=== PATIENT | male | born 1950 | race African-American/Black ===

== ENCOUNTER 2023-02-19 20:20 | Emergency (ER) | payer BC, MEDICARE, OTHER ==
[~2023-02-19] VITALS: Ht 185.5 cm; Wt 88.9 kg
[2023-02-19] MEDS ORDERED: ASPIRIN 81 MG CHEWABLE TABLET PO ONE (20:30)
--- NOTE | 2023-02-19 20:31 | ED Chest Pain ---
General Chief Complaint: Chest Pain Stated Complaint: SOA Source: patient Exam Limitations: no limitations History of Present Illness Date Seen by Provider: Feb 19, 2023 Time Seen by Provider: 20:30 Initial Comments Patient is a 72-year-old male with a history of smoking, hypertension, asthma who presents ED with chest tightness and shortness of breath. This occurred about 30 to 45 minutes ago. [place] on the highway and states he was pulled over. Patient was complaining of chest pain and tightness with shortness of breath to PD. EMS was contacted and brought patient to the ED. He states the chest pain and tightness has improved. He did have some wheezing with the chest pain. Reports history of similar symptoms in the past. No known cardiac history but does have a history of hypertension but not currently on medication. Denies diabetes, high cholesterol. Family cardiac history. Denies of any nausea, vomiting, diarrhea, fever, cough, runny nose, sore throat, ear pain. Patient states symptoms are improving. Allergies and Home Medications Allergies Coded Allergies: cyclobenzaprine (Verified Allergy, Unknown, 02/19/23) Patient Home Medication List Home Medication List Reviewed: Yes Albuterol Sulfate (Ventolin Hfa) 1 Puff Puff, 2 PUFF INH Q4H Prescribed by: ANA BOWEN on 02/19/232124 Review of Systems Review of Systems Constitutional: No chills, No diaphoresis EENTM: No Eye Pain Respiratory: Denies Cough; Shortness of Air Cardiovascular: Chest Pain Gastrointestinal: Denies Abdominal Pain, Denies Constipated, Denies Nausea, De nies Vomiting Genitourinary: Denies Burning, Denies Discharge, Denies Drainage, Denies Frequency Musculoskeletal: No back pain, No joint pain Skin: No change in color, No change in hair/nails All Other Systems Reviewed Negative Unless Noted: Yes Physical Exam Vital Signs Vital Signs - First Documented 02/19/23 20:20 Temp 36.2 Pulse 80 Resp 16 B/P (MAP) 144/113 (123) Pulse Ox 99 O2 Delivery Room Air Capillary Refill : Height, Weight, BMI Height: '" Weight: lbs. oz. kg; BMI Method: General Appearance: No Apparent Distress, WD/WN HEENT: PERRL/EOMI, TMs Normal, Normal ENT Inspection, Pharynx Normal Neck: Full Range of Motion, Normal Inspection, Non Tender, Supple Respiratory: Chest Non Tender, Lungs Clear, Normal Breath Sounds, No Accessory Muscle Use, No Respiratory Distress Cardiovascular: Regular Rate, Rhythm, No Edema, No Gallop, No JVD, No Murmur Gastrointestinal: Normal Bowel Sounds, No Organomegaly, No Pulsatile Mass, Non Tender Extremity: Normal Capillary Refill, Normal Inspection, Normal Range of Motion, Non Tender Neurologic/Psychiatric: Alert, Oriented x3, No Motor/Sensory Deficits, Normal Mood/Affect, 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 Skin: Normal Color, Warm/Dry Progress/Results/Core Measures Results/Orders Lab Results Laboratory Tests Test 02/19/23 20:24 Range/Units White Blood Count 3.8 L 4.3-11.0 10^3/uL Red Blood Count 5.75 H 4.30-5.52 10^6/uL Hemoglobin 15.6 13.3-17.7 g/dL Hematocrit 46 40-54 % Mean Corpuscular Volume 80 80-99 fL Mean Corpuscular Hemoglobin 27 25-34 pg Mean Corpuscular Hemoglobin Concent 34 32-36 g/dL Red Cell Distribution Width 14.3 10.0-14.5 % Platelet Count 171 130-400 10^3/uL Mean Platelet Volume 9.6 9.0-12.2 fL Immature Granulocyte % (Auto) 0 % Neutrophils (%) (Auto) 55 42-75 % Lymphocytes (%) (Auto) 30 12-44 % Monocytes (%) (Auto) 6 0-12 % Eosinophils (%) (Auto) 6 0-10 % Basophils (%) (Auto) 2 0-10 % Neutrophils # (Auto) 2.1 1.8-7.8 10^3/uL Lymphocytes # (Auto) 1.1 1.0-4.0 10^3/uL Monocytes # (Auto) 0.2 0.0-1.0 10^3/uL Eosinophils # (Auto) 0.2 0.0-0.3 10^3/uL Basophils # (Auto) 0.1 0.0-0.1 10^3/uL Immature Granulocyte # (Auto) 0.0 0.0-0.1 10^3/uL Prothrombin Time 13.1 12.2-14.7 SEC INR Comment 1.0 0.8-1.4 Activated Partial Thromboplast Time 31 24-35 SEC Sodium Level 140 135-145 MMOL/L Potassium Level 3.7 3.6-5.0 MMOL/L Chloride Level 109 H 98-107 MMOL/L Carbon Dioxide Level 21 21-32 MMOL/L Anion Gap 10 5-14 MMOL/L Blood Urea Nitrogen 16 7-18 MG/DL Creatinine 1.34 H 0.60-1.30 MG/DL Estimat Glomerular Filtration Rate 57 BUN/Creatinine Ratio 12 Glucose Level 101 70-105 MG/DL Calcium Level 9.1 8.5-10.1 MG/DL Corrected Calcium 8.9 8.5-10.1 MG/DL Magnesium Level 2.2 1.6-2.4 MG/DL Total Bilirubin 0.5 0.1-1.0 MG/DL Aspartate Amino Transf (AST/SGOT) 38 H 5-34 U/L Alanine Aminotransferase (ALT/SGPT) 39 0-55 U/L Alkaline Phosphatase 103 40-136 U/L Myoglobin 116.1 H 10.0-92.0 NG/ML Troponin I < 0.028 <0.028 NG/ML B-Type Natriuretic Peptide < 10.0 <100.0 PG/ML Total Protein 7.9 6.4-8.2 GM/DL Albumin 4.2 3.2-4.5 GM/DL Lipase 20 8-78 U/L My Orders Orders - FANTA BRIGGS PA Ekg Tracing (02/19/23 20:27) Cbc With Automated Diff (02/19/23 20:29) Magnesium (02/19/23 20:29) Chest 1 View, Ap/Pa Only (02/19/23 20:29) Comprehensive Metabolic Panel (02/19/23 20:29) Myoglobin Serum (02/19/23 20:29) Protime With Inr (02/19/23 20:29) Partial Thromboplastin Time (02/19/23 20:29) O2 (02/19/23 20:29) Monitor-Rhythm Ecg Trace Only (02/19/23 20:29) Ed Iv/Invasive Line Start (02/19/23 20:29) Lipase (02/19/23 20:29) Bnp Elizabeth (02/19/23 20:29) Troponin I [place] (02/19/23 20:29) Aspirin Chewable Tablet (Aspirin Chewabl (02/19/23 20:30) Medications Given in ED Vital Signs/I&O 02/19/23 02/19/23 02/19/23 20:20 20:20 21:37 Temp 36.2 36.2 Pulse 80 85 Resp 16 16 B/P (MAP) 144/113 (123) 138/103 Pulse Ox 99 98 O2 Delivery Room Air Room Air Room Air Comment Sinus rhythm voltage criteria for LVH, and 75 bpm, QRS duration 83 MS, QTc 396 MS Departure Communication (PCP) Patient presents ED by EMS for chest pain, tightness and shortness of breath. This occurred 30 minutes ago. Patient got pulled by highway patrol right before the symptoms started. No known cardiac history. Differential diagnosis, ACS, anxiety, asthma exacerbation. Does have a history of asthma. Patient on arrival says that pressure and shortness of breath has improved. No known history of coronary artery disease. History of hypertension but not currently on medication as he states his blood pressure is better controlled. Denies diabetes. History of smoking family cardiac history. Heart score 3. Cardiac work-up is was initiated. Patient was given a full aspirin 324 mg. EKG showed sinus rhythm without evidence of ST elevation or depression or arrhythmia. Concern for LVH. CBC, CMP grossly unremarkable. Normal troponin and BNP. Chest x-ray was negative for pneumonia, pneumothorax. Patient states his symptoms are improving. Patient the entire time was worried that he would not be able to get his vehicle, wallet and money. He is requesting to leave. PD in a tow truck did bring his vehicle back. Discussed with patient that his cardiac work-up is unremarkable. Low suspicion for cardiac. There was no evidence of wheezing. No recent URI suggesting infection. Lung sounds clear bilateral. Patient was eager to leave. Recommend following up outpatient with cardiology. If any worsening symptoms return back to ED for further evaluation. Impression Primary Impression: Chest pain Disposition: 01 HOME, SELF-CARE Condition: Stable Departure-Patient Inst. Decision time for Depature: 21:22 Referrals: KYA CORCORAN MD Patient Instructions: Chest Pain (DC) Add. Discharge Instructions: Recommend following up with cardiology outpatient. If any worsening symptoms return back to ED. All discharge instructions reviewed with patient and/or family. Voiced understanding. Scripts Albuterol Sulfate (VENTOLIN HFA) 1 Puff Puff 2 PUFF INH Q4H, #1 EA 1 PUFF = 90 MCG Prov: FANTA BRIGGS 02/19/23 FANTA BRIGGS Feb 19, 2023 20:31
[2023-02-19 20:37] LABS: BASOPHILS # (AUTO) 0.1 10^3/uL (0.0-0.1); BASOPHILS % (AUTO) 2 % (0-10); EOSINOPHILS # (AUTO) 0.2 10^3/uL (0.0-0.3); EOSINOPHILS % (AUTO) 6 % (0-10); HEMATOCRIT 46 % (40-54); HEMOGLOBIN 15.6 g/dL (13.3-17.7); LYMPHOCYTES # (AUTO) 1.1 10^3/uL (1.0-4.0); LYMPHOCYTES % (AUTO) 30 % (12-44); MEAN CORPUSCULAR HEMOGLOBIN 27 pg (25-34); MEAN CORPUSCULAR HGB CONC 34 g/dL (32-36); MEAN CORPUSCULAR VOLUME 80 fL (80-99); MEAN PLATELET VOLUME 9.6 fL (9.0-12.2); MONOCYTES # (AUTO) 0.2 10^3/uL (0.0-1.0); MONOCYTES % (AUTO) 6 % (0-12); NEUTROPHILS # (AUTO) 2.1 10^3/uL (1.8-7.8); NEUTROPHILS % (AUTO) 55 % (42-75); PLATELET COUNT 171 10^3/uL (130-400); WHITE BLOOD COUNT 3.8 10^3/uL (4.3-11.0)
--- NOTE | 2023-02-19 20:45 | Diagnostic Imaging Report ---
CHEST 1 VIEW, AP/PA ONLY INDICATION: Chest pain. COMPARISON: None. FINDINGS: Lungs: Normal lung volume. No focal consolidation. Stable pulmonary vasculature. Pleura: No pleural effusion or pneumothorax. Heart and Mediastinum: Cardiomediastinal silhouette and great vessels of the thorax are stable. Osseous Structures and Soft Tissues: No acute osseous abnormality. Normal soft tissues. IMPRESSION: No acute cardiopulmonary process. Dictated by: Dictated on workstation # [id number]
[2023-02-19 21:04] LABS: ALBUMIN 4.2 GM/DL (3.2-4.5); CHLORIDE 109 MMOL/L (98-107); POTASSIUM 3.7 MMOL/L (3.6-5.0)
[2023-02-19 21:05] LABS: SODIUM 140 MMOL/L (135-145)
[2023-02-19 21:06] LABS: CALCIUM 9.1 MG/DL (8.5-10.1)
[2023-02-19 21:07] LABS: GLUCOSE 101 MG/DL (70-105); PROTHROMBIN TIME PATIENT 13.1 SEC (12.2-14.7); TOTAL PROTEIN 7.9 GM/DL (6.4-8.2)
[2023-02-19 21:08] LABS: CARBON DIOXIDE 21 MMOL/L (21-32)
[2023-02-19 21:09] LABS: BILIRUBIN,TOTAL 0.5 MG/DL (0.1-1.0)
[2023-02-19 21:10] LABS: ALKALINE PHOSPHATASE 103 U/L (40-136); CREATININE SERUM 1.34 MG/DL (0.60-1.30); GFR ESTIMATED 57
[2023-02-19 21:11] LABS: BUN/CREATININE RATIO 12
[2023-02-19 21:13] LABS: ALANINE AMINOTRANSFERASE 39 U/L (0-55); MAGNESIUM 2.2 MG/DL (1.6-2.4)
[2023-02-19 21:14] LABS: LIPASE 20 U/L (8-78)
[2023-02-19] MEDS ORDERED: RT-ALBUINH INH (21:25)
[2023-02-19 21:37] VITALS: BP 138/103
== END 2023-02-19 21:39 | disposition home or self-care (01) ==
LOC: ER 20:22
DX: R07.89 Other chest pain (principal); R06.02 Shortness of breath
CPT/HCPCS: 36415; 71045; 80053; 83690; 83735; 83874; 83880; 84484; 85025; 85610; 85730; 93005; 93041